=== PATIENT | male | born 1990 | race Two or more races ===

== ENCOUNTER 2019-12-28 10:26 | Inpatient (IN) | payer MEDICARE, MEDICAID ==
[~2019-12-28] VITALS: Ht 160 cm; Wt 79.7 kg
[2019-12-28] MEDS ORDERED: ACETAMINOPHEN 650 mg PER 20 mL UD PO ONE (11:00)
[2019-12-28] MEDS ORDERED: methylPREDNISolone SOD SUCC 125 MG/2 ML VL IV ONE (12:15)
[2019-12-28] MEDS ORDERED: ZINC SULFATE 220mg CAP or TAB PO ONE (12:45)
[2019-12-28] MEDS ORDERED: ASCORBIC ACID 500 MG TAB PO ONE (12:45)
[2019-12-28] MEDS ORDERED: ENOXAPARIN SOD 100 MG/1 ML SYRINGE SC ONE (12:45)
[2019-12-28] MEDS ORDERED: hydrOXYchloroQUINE SULFATE 200 MG TAB PO ONE (12:45)
[2019-12-28] MEDS ORDERED: AZITHROMYCIN 500MG/ 250ML 250 ML IV ONE (12:45)
[2019-12-28] MEDS ORDERED: SODIUM CHLORIDE 0.9% 1,000 ML IV ONE (13:00)
[2019-12-28 13:24] LABS: Basophils # (auto) 0 10 ^3/uL (0-0.2); Basophils % (auto) 0.1 % (0.0-2.0); Eosinophils # (auto) 0 10 ^3/uL (0-0.8); Hematocrit 47.5 % (41.0-53.0); Hemoglobin 16.1 g/dL (13.5-17.5); Lymphocytes # (auto) 0.7 10 ^3/uL (0.4-5.4); Lymphocytes % (auto) 5.6 % (10.0-50.0); Mean Corpuscular Hgb Conc. 33.9 g/dL (32.0-36.0); Mean Corpuscular Volume 85.4 fL (80.0-100.0); Monocytes # (auto) 0.8 10 ^3/uL (0-1.3); Monocytes % (auto) 6.3 % (0.0-12.0); Neutrophils # (auto) 11.1 10 ^3/uL (1.6-8.6); Nucleated Red Blood Cells % 0.1 %; Platelet Count (auto) 263 10^3/uL (140-450); Red Blood Cells 5.56 10^6/uL (4.5-5.90); Red Cell Distribution Width 13.5 % (11.8-14.3); White Blood Cell 12.6 10^3/uL (4.4-10.8)
[2019-12-28] MEDS ORDERED: SODIUM CHLORIDE 0.9% 1,000 ML IV SCH (13:34)
[2019-12-28] MEDS ORDERED: ONDANSETRON HCL 4 MG/2 ML VIAL IV PRN (13:45)
[2019-12-28] MEDS ORDERED: MORPHINE SULF INJ 2 MG/ML SYRINGE 1ML IV PRN (13:45)
[2019-12-28] MEDS ORDERED: LACTULOSE 20Gm/30ML SOLN PO PRN (13:45)
[2019-12-28] MEDS ORDERED: NITROGLYCERIN 0.4 MG SL TAB SL PRN (13:45)
[2019-12-28 13:48] LABS: Albumin 3.1 g/dL (3.4-5.0); BUN/Creatinine Ratio 14.3; Calcium 8.7 mg/dL (8.5-10.1); Potassium 3.8 mmol/L (3.5-5.1)
[2019-12-28 13:50] LABS: Total Protein 7.7 g/dL (6.4-8.2)
[2019-12-28] MEDS ORDERED: ALBUTEROL SULF HFA 90MCG INH 200DOSE IN SCH (14:00)
[2019-12-28 14:08] LABS: Lactate Dehydrogenase 394 U/L (87-241)
[2019-12-28 14:13] LABS: CRP High Sensitivity > 19.0 mg/dL (< 0.3)
[2019-12-28] MEDS: CLINDAMYCIN 600MG IV 50 ML IV SCH ×2 (15:23→22:17)
[2019-12-28] MEDS ORDERED: BUDESONIDE (INHALATION) 0.5 MG/2 ML NEB NEB ONE (17:15)
[2019-12-28] MEDS: ENOXAPARIN SOD 80 MG/0.8ML SYRINGE SC SCH ×2 (22:00→22:17)
[2019-12-28] MEDS: DexAMETHasone SOD PHOS 10MG/1ML VIAL INJ IV SCH (22:16)
[2019-12-28] MEDS: traMADol HCL 50 MG TAB PO PRN (22:17)
[2019-12-28] MEDS: BUDESONIDE (INHALATION) 0.5 MG/2 ML NEB NEB SCH (22:26)
[2019-12-29] MEDS: CLINDAMYCIN 600MG IV 50 ML IV SCH (05:54)
[2019-12-29 05:55] LABS: Basophils # (auto) 0 10 ^3/uL (0-0.2); Basophils % (auto) 0.5 % (0.0-2.0); Eosinophils # (auto) 0 10 ^3/uL (0-0.8); Hematocrit 44.7 % (41.0-53.0); Hemoglobin 15.5 g/dL (13.5-17.5); Lymphocytes # (auto) 0.4 10 ^3/uL (0.4-5.4); Lymphocytes % (auto) 4.8 % (10.0-50.0); Mean Corpuscular Hemoglobin 29.5 pg (28.0-32.0); Mean Corpuscular Hgb Conc. 34.6 g/dL (32.0-36.0); Mean Corpuscular Volume 85.3 fL (80.0-100.0); Monocytes # (auto) 0.4 10 ^3/uL (0-1.3); Monocytes % (auto) 4.7 % (0.0-12.0); Neutrophils # (auto) 7.1 10 ^3/uL (1.6-8.6); Platelet Count (auto) 303 10^3/uL (140-450); Red Blood Cells 5.24 10^6/uL (4.5-5.90); Red Cell Distribution Width 13.5 % (11.8-14.3); White Blood Cell 7.9 10^3/uL (4.4-10.8)
[2019-12-29 06:06] LABS: Albumin 2.7 g/dL (3.4-5.0); Calcium 8.7 mg/dL (8.5-10.1); Potassium 4.4 mmol/L (3.5-5.1)
[2019-12-29 06:10] LABS: Bilirubin, Total 0.7 mg/dL (0.2-1.0); Total Protein 7.2 g/dL (6.4-8.2)
[2019-12-29] MEDS: levoFLOXacin 500MG 100 ML IV SCH (09:45)
[2019-12-29] MEDS: ENOXAPARIN SOD 80 MG/0.8ML SYRINGE SC SCH (09:46)
[2019-12-29] MEDS: CHOLECALCIFEROL (VITD3) 1,000UNIT=25mCg TAB PO SCH (09:46)
[2019-12-29] MEDS: DexAMETHasone SOD PHOS 10MG/1ML VIAL INJ IV SCH (09:46)
[2019-12-29] MEDS: ZINC SULFATE 220mg CAP or TAB PO SCH (09:46)
[2019-12-29] MEDS: BUDESONIDE (INHALATION) 0.5 MG/2 ML NEB NEB SCH ×2 (10:47→22:04)
[2019-12-29] MEDS ORDERED: POTASSIUM EFFERVESENT TAB 25 MEQ PO ONE (15:30)
[2019-12-29] MEDS ORDERED: FUROSEMIDE 20 MG/2 ML VIAL IV ONE (15:30)
--- NOTE | 2019-12-29 20:15 | NUR ---
PATIENT ADMITTED TO ROOM 234 Patient arrived on the unit A&O, respirations even and non-labored with no s/s of distress. VS: T 97.9, BP 112/62, HR 100, RR 30. Patient O2Sat at 88%, placed on NC at 3L, patient increased to 93%. Patient accompanied by his sister, Sapna, who will be staying with the patient through the night. Sapna stated that her will be staying with the patient during the daytime. The patient is autistic along with mental retardation. His caregiver stated that his mental age is 1 years old. Urinal bedside, bed in lowest locked position with 2 side rails up. Call light within reach. Patient and family member advised to call for assistance. Will continue to monitor.
[2019-12-29 21:00] VITALS: BP 112/62
[2019-12-29 22:00] VITALS: BP 112/62
--- NOTE | 2019-12-29 23:20 | NUR ---
Pain Patient c/o a sore throat. Caregiver stated that his throat has made it painful for him to swallow. Administered Ultram 50 mg per EMAR. Will continue to monitor.
[2019-12-29] MEDS: traMADol HCL 50 MG TAB PO PRN (23:22)
[2019-12-29] MEDS: DexAMETHasone 4 MG TAB PO SCH (23:22)
[2019-12-30 05:00] VITALS: BP 106/65
[2019-12-30] MEDS: BUDESONIDE (INHALATION) 0.5 MG/2 ML NEB NEB SCH (07:03)
--- NOTE | 2019-12-30 07:30 | NUR ---
Opening Shift Note Assumed care of patient, awake and alert. No S/S of distress/SOB or pain noted at this time. Instructed on POC and to call for assist PRN, pt response is delayed and family at bedside, included in POC and teaching, pt educated on the use of incentive spirometer and need to turn frequently including prone positioning, family verbalized understanding, will continue to monitor for changes Q1hr and PRN.
[2019-12-30 08:00] VITALS: BP 133/73
[2019-12-30 09:00] VITALS: BP 108/58
[2019-12-30] MEDS: levoFLOXacin 500MG 100 ML IV SCH (09:40)
[2019-12-30] MEDS: POTASSIUM EFFERVESENT TAB 25 MEQ PO SCH (09:41)
[2019-12-30] MEDS: ENOXAPARIN SOD 40 MG/0.4 ML SYRINGE SC SCH (09:41)
[2019-12-30] MEDS: CHOLECALCIFEROL (VITD3) 1,000UNIT=25mCg TAB PO SCH (09:42)
[2019-12-30] MEDS: ZINC SULFATE 220mg CAP or TAB PO SCH (09:42)
[2019-12-30] MEDS: DexAMETHasone 4 MG TAB PO SCH ×2 (09:43→21:22)
[2019-12-30] MEDS: FUROSEMIDE 20 MG/2 ML VIAL IV SCH (09:43)
--- NOTE | 2019-12-30 09:55 | NUR ---
PULMONOLOGY DR HANNA AT BEDSIDE, DISCUSSING POC WITH PT AND FAMILY, NEW ORDERS ENTERED BY DM, CONT CARE
--- NOTE | 2019-12-30 10:15 | NUR ---
INCENTIVE SPIROMETER PT ABLE TO RETURN DEMONSTRATION ON HOW TO USE IS AND RAISED MARKER TO 500, FAMILY INFORMED TO ENCOURAGE PT TO USE Q1HR WA, PT UNABLE TO VERBALIZED FULL UNDERSTANDING BUT FAMILY IS, CONT CARE
[2019-12-30 13:00] VITALS: BP 100/61
[2019-12-30] MEDS: ALBUTEROL SULF 2.5 MG/0.5ML(0.5%) NEB SOLN NEB SCH ×2 (14:00→22:16)
[2019-12-30] MEDS ORDERED: ALBUTEROL SULF HFA 90MCG INH 200DOSE IN SCH (14:00)
[2019-12-30] MEDS: hydrOXYchloroQUINE SULFATE 200 MG TAB PO SCH ×2 (16:30→21:22)
[2019-12-30 17:00] VITALS: BP 105/66
--- NOTE | 2019-12-30 17:15 | NUR ---
O2 87%, PT RE-APPLIED O2 INCREASED TO 92%, PT RE-ORIENTED AND INSTRUCTED TO KEEP O2 ON, FAMILY AT BEDSIDE, INSTRUCTED TO CALL STAFF IMMEDIATELY IF PT REMOVED OXYGEN, CONT CARE
--- NOTE | 2019-12-30 19:30 | NUR ---
Opening Shift Note Assumed care of patient, awake and alert x2. No S/S of distress/SOB or pain. Instructed on POC and to call for assist PRN. Bed in lowest locked position, call light within reach, side rails up x2. Will continue to monitor for changes Q1hr and PRN.
[2019-12-30] MEDS: methylPREDNISolone SOD SUCC 40 MG/ML VL IV SCH (20:41)
[2019-12-30] MEDS: diphenhdrAMINE HCL 50 MG/1 ML VL IV SCH (20:41)
[2019-12-30] MEDS: ACETAMINOPHEN 650 mg PER 20 mL UD PO SCH (20:42)
[2019-12-30] MEDS: TOCILIZUMAB 400 MG in SODIUM CHL 0.9% 80 ML IV SCH (21:22)
[2019-12-30 22:00] VITALS: BP 105/71
[2019-12-30] MEDS ORDERED: hydrOXYchloroQUINE SULFATE 200 MG TAB PO SCH (22:00)
[2019-12-31] MEDS: BUDESONIDE (INHALATION) 0.5 MG/2 ML NEB NEB SCH ×3 (01:41→23:32)
[2019-12-31 05:00] VITALS: BP 114/71
[2019-12-31 06:40] LABS: Basophils # (auto) 0 10 ^3/uL (0-0.2); Basophils % (auto) 0.2 % (0.0-2.0); Eosinophils # (auto) 0 10 ^3/uL (0-0.8); Hematocrit 45.2 % (41.0-53.0); Hemoglobin 15.7 g/dL (13.5-17.5); Lymphocytes # (auto) 0.4 10 ^3/uL (0.4-5.4); Lymphocytes % (auto) 4.7 % (10.0-50.0); Mean Corpuscular Hemoglobin 29.9 pg (28.0-32.0); Mean Corpuscular Hgb Conc. 34.8 g/dL (32.0-36.0); Mean Corpuscular Volume 85.9 fL (80.0-100.0); Monocytes # (auto) 0.6 10 ^3/uL (0-1.3); Monocytes % (auto) 6.6 % (0.0-12.0); Neutrophils # (auto) 7.5 10 ^3/uL (1.6-8.6); Neutrophils % (auto) 88.5 % (37.0-80.0); Nucleated Red Blood Cells % 0.1 %; Platelet Count (auto) 415 10^3/uL (140-450); Red Blood Cells 5.27 10^6/uL (4.5-5.90); Red Cell Distribution Width 13.6 % (11.8-14.3); White Blood Cell 8.5 10^3/uL (4.4-10.8)
[2019-12-31 06:56] LABS: Potassium 4.2 mmol/L (3.5-5.1)
[2019-12-31 07:01] LABS: BUN/Creatinine Ratio 24.7; Calcium 8.6 mg/dL (8.5-10.1)
--- NOTE | 2019-12-31 07:30 | NUR ---
Opening Shift Note Assumed care of patient, awake and alert. No S/S of distress/SOB or pain. Instructed on POC and to call for assist PRN, will continue to monitor for changes Q1hr and PRN. Fall precautions in place per safety protocol.
[2019-12-31 08:00] VITALS: BP 127/76
[2019-12-31] MEDS: diphenhdrAMINE HCL 50 MG/1 ML VL IV SCH (08:30)
[2019-12-31] MEDS: ACETAMINOPHEN 650 mg PER 20 mL UD PO SCH (08:30)
[2019-12-31] MEDS: methylPREDNISolone SOD SUCC 40 MG/ML VL IV SCH (08:30)
[2019-12-31] MEDS: TOCILIZUMAB 400 MG in SODIUM CHL 0.9% 80 ML IV SCH (09:00)
[2019-12-31] MEDS ORDERED: AZITHROMYCIN 500MG/ 250ML 250 ML IV SCH (10:00)
[2019-12-31] MEDS: ENOXAPARIN SOD 40 MG/0.4 ML SYRINGE SC SCH ×2 (10:00→10:35)
[2019-12-31] MEDS: ZINC SULFATE 220mg CAP or TAB PO SCH (10:29)
[2019-12-31] MEDS: FUROSEMIDE 20 MG/2 ML VIAL IV SCH (10:29)
[2019-12-31] MEDS: DexAMETHasone 4 MG TAB PO SCH ×2 (10:30→21:30)
[2019-12-31] MEDS: POTASSIUM EFFERVESENT TAB 25 MEQ PO SCH (10:30)
[2019-12-31] MEDS: levoFLOXacin 500 MG TAB PO SCH (10:35)
[2019-12-31] MEDS ORDERED: ACETAMINOPHEN 650 mg PER 20 mL UD PO ONE (11:00)
[2019-12-31] MEDS ORDERED: diphenhdrAMINE HCL 50 MG/1 ML VL IV ONE (11:00)
[2019-12-31] MEDS ORDERED: methylPREDNISolone SOD SUCC 40 MG/ML VL IV ONE (11:00)
[2019-12-31] MEDS: ALBUTEROL SULF 2.5 MG/0.5ML(0.5%) NEB SOLN NEB SCH ×3 (11:13→23:32)
[2019-12-31] MEDS ORDERED: TOCILIZUMAB 400 MG in SODIUM CHL 0.9% 80 ML IV ONE (11:30)
[2019-12-31] MEDS: CHOLECALCIFEROL (VITD3) 1,000UNIT=25mCg TAB PO SCH (11:55)
[2019-12-31] MEDS: hydrOXYchloroQUINE SULFATE 200 MG TAB PO SCH ×2 (11:55→21:30)
[2019-12-31 12:00] VITALS: BP 111/70
--- NOTE | 2019-12-31 14:15 | NUR ---
Nutrition Assessment Notes Please refer to link for full assessment notes. Est Energy needs: 9381-2664 kcals (17-20 kcal/kgBW) Est Protein needs: 65-82 gms/day (0.8-1.0 gm/kgBW) Will continue to monitor and reassess prn. Addendum: 12/31/19 at [address] Amended: Links added.
[2019-12-31 16:56] VITALS: BP 121/67
[2019-12-31] MEDS: Ensure HIGH Protein Chocolate 8oz Bottle PO SCH (18:00)
[2019-12-31 22:00] VITALS: BP 120/68
[2020-01-01 05:00] VITALS: BP 112/65
[2020-01-01 05:12] LABS: Hematocrit 47.1 % (41.0-53.0); Hemoglobin 16.2 g/dL (13.5-17.5); Mean Corpuscular Hemoglobin 29.4 pg (28.0-32.0); Mean Corpuscular Hgb Conc. 34.3 g/dL (32.0-36.0); Mean Corpuscular Volume 85.5 fL (80.0-100.0); Platelet Count (auto) 440 10^3/uL (140-450); Red Blood Cells 5.51 10^6/uL (4.5-5.90); Red Cell Distribution Width 13.4 % (11.8-14.3)
[2020-01-01 05:24] LABS: Basophils % (manual) 0 (0.0-2.0); Blast Cells 0; Eosinophils % (manual) 0 (0-7); Metamyelocytes % 0; Myelocytes % 0; Promyelocytes % 0; Reactive Lymphocytes 0
[2020-01-01 05:46] LABS: Albumin 2.7 g/dL (3.4-5.0); Calcium 8.4 mg/dL (8.5-10.1); Potassium 4.4 mmol/L (3.5-5.1)
[2020-01-01 05:50] LABS: Bilirubin, Total 0.8 mg/dL (0.2-1.0); Total Protein 6.9 g/dL (6.4-8.2)
[2020-01-01 06:44] LABS: Band Neutrophils % (manual) 1; Lymphocytes % (manual) 7 (10.0-50.0); Monocytes % (manual) 8 (0-12)
[2020-01-01] MEDS: ALBUTEROL SULF 2.5 MG/0.5ML(0.5%) NEB SOLN NEB SCH ×3 (06:52→21:25)
[2020-01-01 08:00] VITALS: BP 109/66
[2020-01-01] MEDS: Ensure HIGH Protein Chocolate 8oz Bottle PO SCH ×2 (09:06→17:51)
[2020-01-01] MEDS: FUROSEMIDE 20 MG/2 ML VIAL IV SCH (09:15)
[2020-01-01] MEDS: POTASSIUM EFFERVESENT TAB 25 MEQ PO SCH (09:16)
[2020-01-01] MEDS: levoFLOXacin 500 MG TAB PO SCH (09:46)
[2020-01-01] MEDS: ENOXAPARIN SOD 40 MG/0.4 ML SYRINGE SC SCH ×2 (09:46→22:03)
[2020-01-01] MEDS: ZINC SULFATE 220mg CAP or TAB PO SCH (09:46)
[2020-01-01] MEDS: DexAMETHasone 4 MG TAB PO SCH ×2 (09:46→22:02)
[2020-01-01] MEDS: CHOLECALCIFEROL (VITD3) 1,000UNIT=25mCg TAB PO SCH (09:46)
[2020-01-01] MEDS: hydrOXYchloroQUINE SULFATE 200 MG TAB PO SCH ×2 (09:46→22:03)
[2020-01-01] MEDS: BUDESONIDE (INHALATION) 0.5 MG/2 ML NEB NEB SCH ×2 (10:03→21:25)
[2020-01-01 12:00] VITALS: BP 97/70
[2020-01-01] MEDS ORDERED: SODIUM CHLORIDE 0.9 % NEB SOLN 3ML NEB ONE (15:17)
[2020-01-01 16:54] VITALS: BP 101/54
--- NOTE | 2020-01-01 20:00 | NUR ---
Opening Shift Note Assumed care of patient. Awake, alert and oriented x3. Sister is at bedside. No S/S of distress/SOB or pain. Patient is sleeping in bed, nasal cannula is on at 5L, with even and unlabored respirations. Instructed on POC and to call for assist PRN. Bed locked, in lowest position, call light within reach, side rails up x2. Will continue to monitor for changes Q1hr and PRN.
[2020-01-01 22:00] VITALS: BP 117/69
[2020-01-02 02:24] VITALS: BP 117/69
[2020-01-02 05:00] VITALS: BP 110/63
[2020-01-02] MEDS: BUDESONIDE (INHALATION) 0.5 MG/2 ML NEB NEB SCH ×2 (06:16→22:00)
[2020-01-02] MEDS: ALBUTEROL SULF 2.5 MG/0.5ML(0.5%) NEB SOLN NEB SCH ×3 (06:16→22:00)
[2020-01-02 08:07] VITALS: BP 101/68
[2020-01-02] MEDS: Ensure HIGH Protein Chocolate 8oz Bottle PO SCH ×2 (10:26→18:16)
[2020-01-02] MEDS: FUROSEMIDE 20 MG/2 ML VIAL IV SCH (10:27)
[2020-01-02] MEDS: POTASSIUM EFFERVESENT TAB 25 MEQ PO SCH (10:28)
[2020-01-02] MEDS: ZINC SULFATE 220mg CAP or TAB PO SCH (10:28)
[2020-01-02] MEDS: DexAMETHasone 4 MG TAB PO SCH ×2 (10:28→22:00)
[2020-01-02] MEDS: ENOXAPARIN SOD 40 MG/0.4 ML SYRINGE SC SCH ×2 (10:28→22:00)
[2020-01-02] MEDS: levoFLOXacin 500 MG TAB PO SCH (10:28)
[2020-01-02] MEDS: CHOLECALCIFEROL (VITD3) 1,000UNIT=25mCg TAB PO SCH (10:29)
[2020-01-02] MEDS: hydrOXYchloroQUINE SULFATE 200 MG TAB PO SCH ×2 (10:29→22:00)
[2020-01-02 13:00] VITALS: BP 94/68
--- NOTE | 2020-01-02 13:51 | NUR ---
assessment Patient is a 29 year old cognitively delayed male who is Covid 19 positive. Per patients sister Sapna prior to admission patient lived home with his parents and family and needed assistance. The whole family is positive for Covid. Patients PCP is Dr Blas in [place]. Patient is autistic. I informed Sapna I would continue to monitor patients progress and will discharge plan closer to discharge. Sapna verbalized understanding. Addendum: 01/02/20 at 1355 by Priscilla CHÁVEZ Amended: Links added.
[2020-01-02 16:57] VITALS: BP 102/61
--- NOTE | 2020-01-02 20:00 | NUR ---
Opening Shift Note Assumed care of patient, awake and alert. No S/S of distress/SOB or pain. Instructed patient and family member on POC and to call for assist PRN, will continue to monitor for changes Q1hr and PRN.bed in low position call light within reach. family member at bedside.
[2020-01-02 22:00] VITALS: BP 98/65
--- NOTE | 2020-01-02 22:00 | NUR ---
patient and family member educated on is family member verbalized understanding
[2020-01-03 05:00] VITALS: BP 106/58
--- NOTE | 2020-01-03 06:54 | NUR ---
patient rounds patient resting in bed. family member at bedside. patient denies sob distress or pain. call light within reach. and bed in low position
[2020-01-03] MEDS: BUDESONIDE (INHALATION) 0.5 MG/2 ML NEB NEB SCH (07:08)
[2020-01-03] MEDS: ALBUTEROL SULF 2.5 MG/0.5ML(0.5%) NEB SOLN NEB SCH ×2 (07:08→15:32)
--- NOTE | 2020-01-03 07:14 | NUR ---
report given to dayshift rn patient is alert and awake denies sob distress or pain
[2020-01-03 09:07] VITALS: BP 105/64
[2020-01-03] MEDS: FUROSEMIDE 20 MG/2 ML VIAL IV SCH (10:00)
[2020-01-03] MEDS: POTASSIUM EFFERVESENT TAB 25 MEQ PO SCH (10:00)
[2020-01-03] MEDS: Ensure HIGH Protein Chocolate 8oz Bottle PO SCH ×2 (10:20→18:43)
[2020-01-03] MEDS: ZINC SULFATE 220mg CAP or TAB PO SCH (10:22)
[2020-01-03] MEDS: DexAMETHasone 4 MG TAB PO SCH (10:22)
[2020-01-03] MEDS: levoFLOXacin 500 MG TAB PO SCH (10:23)
[2020-01-03] MEDS: CHOLECALCIFEROL (VITD3) 1,000UNIT=25mCg TAB PO SCH (10:23)
[2020-01-03] MEDS: ENOXAPARIN SOD 40 MG/0.4 ML SYRINGE SC SCH (10:23)
[2020-01-03] MEDS: hydrOXYchloroQUINE SULFATE 200 MG TAB PO SCH (10:23)
[2020-01-03 13:00] VITALS: BP 99/65
--- NOTE | 2020-01-03 14:53 | NUR ---
paged SS Re: patients home 02. awaiting call back
--- NOTE | 2020-01-03 15:07 | NUR ---
Per Dr Roblero ABG is not needed for Covid patients.
--- NOTE | 2020-01-03 15:08 | NUR ---
Paged runner worker supervisor home energy consultant
--- NOTE | 2020-01-03 15:19 | NUR ---
Per juan pillowcase maker on-call, [facility] faces[facility]
--- NOTE | 2020-01-03 15:29 | NUR ---
paperwork faxed to [facility] [phone]- phone #- [phone]
--- NOTE | 2020-01-03 16:31 | NUR ---
Paged mobile application developer - [facility] phone number does not work. Number does not go through.
[2020-01-03 17:00] VITALS: BP 100/44
--- NOTE | 2020-01-03 18:44 | NUR ---
patient discharged home with 02. patient family member at bedside for instructions.
== END 2020-01-03 18:05 | disposition home or self-care (01) | DRG 871 ==
LOC: ER 10:26 → TELE 10:27 → TELE-EAST 12-29 20:28
PROVIDERS: ADMIT Internal Medicine; ATTEND Internal Medicine Nephrology
DX: A41.89 Other specified sepsis (principal); U07.1 COVID-19; J12.89 Other viral pneumonia; J96.01 Acute respiratory failure with hypoxia; R65.20 Severe sepsis without septic shock; E66.9 Obesity, unspecified; R62.50 Unspecified lack of expected normal physiological development in childhood; E88.09 Other disorders of plasma-protein metabolism, not elsewhere classified; Z79.899 Other long term (current) drug therapy; Z82.49 Family history of ischemic heart disease and other diseases of the circulatory system; Z83.3 Family history of diabetes mellitus; Z68.32 Body mass index [BMI] 32.0-32.9, adult
CPT/HCPCS: 36415; 71045; 80048; 80053; 82728; 83605; 83615; 83735; 85007; 85025; 85027; 85379; 86141; 87040; 94640; 96365; 96372; 96375; G0378; J1100; J1956; J2405; J3490

== ENCOUNTER 2021-08-12 17:47 | Emergency (ER) | payer MEDICARE, MEDICAID ==
[~2021-08-12] VITALS: Ht 170.2 cm; Wt 81.2 kg
[2021-08-12 17:52] VITALS: BP 125/85
[2021-08-12] MEDS ORDERED: SODIUM CHLORIDE 0.9% 1,000 ML IVB ONE (19:00)
== END 2021-08-12 22:23 | disposition left against medical advice (07) ==
LOC: ER 17:47
DX: S93.401A Sprain of unspecified ligament of right ankle, initial encounter (principal); X50.1XXA Overexertion from prolonged static or awkward postures, initial encounter; Y93.89 Activity, other specified; Y92.89 Other specified places as the place of occurrence of the external cause; Y99.8 Other external cause status
CPT/HCPCS: 73610

== ENCOUNTER 2024-04-19 20:01 | Emergency (ER) | payer MEDICARE, MEDICAID ==
[~2024-04-19] VITALS: Ht 170.2 cm; Wt 83.4 kg
--- NOTE | 2024-04-19 20:16 | ED.PDOC ---
Mark. trauma (HPI) HPI Comments 34 y.o autistic male brought in by father, presents to the ED for a chief complaint of right knee zohu and abrasions s/p mechanical fall today. Father reports patient was running around with a rope outside, heard him fall and turned around to find patient on the floor. Patient presents with small abrasions to the zhou. No LOC, head injuries, dizziness or lightheadedness reported. No blood loss. Time Seen by MD: 20:10 Primary Care Provider: JAY JAY TOBIN Reviewed notes: Nurses Notes, Medications, Allergies Allergies: Coded Allergies: NO KNOWN ALLERGIES (Unverified , 12/28/19) Home Meds No Active Prescriptions or Reported Meds Information Source: Patient, Relative (Father) Mode of Arrival: Ambulatory Severity: Moderate Timing: Hours Duration: Since onset Location: (R) Leg Mechanism: Blunt trauma, Fall Associated signs and symtoms: Other Past Medical History PAST MEDICAL HISTORY: Denies Past Medical History (Other): austim Surgical History: Denies all surgeries Family History Family History: Family hx of DM, Family hx of HTN Social History Smoker: Non-Smoker Alcohol: Denies ETOH Use Drugs: Denies Drug Use Lives In: Home Constitutional: denies: chills, diaphoresis, fatigue, fever, malaise, sweats, weakness, others EENTM: denies: blurred vision, double vision, ear bleeding, ear discharge, ear drainage, ear pain, ear ringing, eye pain, eye redness, hearing loss, mouth pain, mouth swelling, nasal discharge, nose bleeding, nose congestion, nose pain, photophobia, tearing, throat pain, throat swelling, voice changes, others Respiratory: denies: cough, hemoptysis, orthopnea, SOB at rest, shortness of breath, SOB with excertion, stridor, wheezing, others Cardiovascular: denies: chest pain, dizzy spells, diaphoresis, Dyspnea on exertion, edema, irregular heart beat, left arm pain, lightheadedness, palpitations, PND, syncope, others Gastrointestinal: denies: abdomen distended, abdominal pain, blood streaked bowels, constipated, diarrhea, dysphagia, difficulty swallowing, hematemesis, melena, nausea, poor appetite, poor fluid intake, rectal bleeding, rectal pain, vomiting, others Genitourinary: denies: burning, dysuria, flank pain, frequency, hematuria, incontinence, penile discharge, penile sore, pain, testicle pain, testicle swelling, urgency, others Neurological: denies: dizziness, fainting, headache, left sided numbness, left sided weakness, numbness, paresthesia, pre-existing deficit, right sided numbness, right sided weakness, seizure, speech problems, tingling, tremors, weakness, others Musculoskeletal: reports: others (right zhou pain ); denies: back pain, gout, joint pain, joint swelling, muscle pain, muscle stiffness, neck pain Integumetry: reports: others (upper zhou abrasions ); denies: bruises, change in color, change in hair/nails, dryness, laceration, lesions, lumps, rash, wounds Allergic/Immunocompromised: denies: Difficulty Healing, Frequent Infections, Hives, Itching, others Hematologic/Lymphatic: denies: anemia, blood clots, easy bleeding, easy bruising, swollen glands, others Endocrine: denies: excessive hunger, excessive sweating, excessive thirst, excessive urination, flushing, intolerance to cold, intolerance to heat, unexplained weight gain, unexplained weight loss, others Psychiatric: denies: anxiety, bipolar disorder, depression, hopeless, panic disorder, schizophrenia, sleepless, suicidal, others All Other Systems: Reviewed and Negative Physical Exam General Appearance: Mild Distress (due to zhou pain), Normal HEENT: Normal ENT Inspection, Pharynx Normal, TMs Normal Neck: Full Range of Motion, Non-Tender, Normal, Normal Inspection Respiratory: Chest Non-Tender, Lungs Clear, No Accessory Muscle Use, No Respiratory Distress, Normal Breath Sounds Cardiovascular: No Edema, No JVD, No Murmur, No Gallop, Normal Peripheral Pulses, Regular Rate/Rhythm Breast Exam: Deferred Gastrointestinal: No Organomegaly, Non Tender, No Pulsatile Mass, Normal Bowel Sounds, Soft Genitalia: Deferred Pelvic: Deferred Rectal: Deferred Extremities: Other (Lemon sized hematoma noted to superior R zhou. Diffuse TTP. Pt. is able to bear weight.) Neurologic: Alert, capacity analyst II-XII nml as Tested, No Motor Deficits, Normal Affect, Normal Mood, No Sensory Deficits Cerebellar Function: Normal Reflexes: Normal Skin: Dry, Normal Color, Warm Lymphatic: No Adenopathy Was a procedure done? Was a procedure done?: No Differential Diagnosis Multiple Trauma: Fractures, Abrasions, Contusion X-Ray, Labs, Meds, VS Vital Signs Date Time Temp Pulse Resp B/P (MAP) Pulse Ox O2 Delivery O2 Flow Rate FiO2 04/19/24 20:32 98.1 86 17 135/71 (92) 98 Current Medications Medications (Trade) Dose Ordered Sig/Raheel Route Start Time Stop Time Status Last Admin Ibuprofen (Motrin Tablet) 800 mg ONCE ONCE PO 04/19/24 20:15 04/19/24 20:16 DC 04/19/24 20:33 CLINICAL INDICATION: superior zhou trauma TECHNIQUE: XY R TIB FIB XRAY Comparison: None FINDINGS/IMPRESSION: There is no evidence of acute fracture or dislocation. The visualized joint space is well maintained. The alignment is anatomical. There is no radiopaque foreign body. Soft tissue edema/ hematoma along the anterior and superior right leg X-Ray, Labs, Meds, VS Comment Pt. states good response to treatment. All studies performed at the ED today were reviewed by me personally. Imaging studies were unremarkable for any acute fractures. Pt. sustained a leg contusion. Pain meds as needed. Time of 1ST Reevaluation: 22:11 Reevaluation 1ST: Improved Consultation: PCP Patient Education/Counseling: Diagnosis, Treatment, Other Family Education/Counseling: Diagnosis, Treatment, Prognosis Departure 1 Departure Time of Disposition: 22:12 Impression: Primary Impression: Contusion of skin Disposition: HOME / SELF CARE / HOMELESS Condition: Stable Additional Instructions: Advise pain meds as needed as well as ice therapy. e-Prescriptions Ibuprofen Micronized (Ibuprofen) 800 Mg Tab 800 MG PO Q8HP PRN, #20 TAB Prov: SILVIA SERRANO PAC 04/19/24 Discharged With: Self, Relative (Father) Critical Care Note Critical Care Time?: No Stability Stability form required: No I personally scribed for SILVIA SERRANO PAC ([email or web address]) on 04/19/24 at 20:16. Electronically submitted by Angy Monahan ([facility]). I personally scribed for SILVIA SERRANO PAC ([email or web address]) on 04/19/24 at 21:52. Electronically submitted by Angy Monahan ([facility]). SILVIA SERRANO PAC Apr 19, 2024 20:16
[2024-04-19 20:32] VITALS: BP 135/71; PULSE 86; RESP 17; O2SAT 98
[2024-04-19] MEDS: IBUPROFEN 800 MG TAB PO ONE (20:33)
--- NOTE | 2024-04-19 21:28 | DVH ---
CLINICAL INDICATION: superior zhou trauma TECHNIQUE: XY R TIB FIB XRAY Comparison: None FINDINGS/IMPRESSION: There is no evidence of acute fracture or dislocation. The visualized joint space is well maintained. The alignment is anatomical. There is no radiopaque foreign body. Soft tissue edema/ hematoma along the anterior and superior righ t leg
[2024-04-19] MEDS ORDERED: IBUP-1455 PO (22:13)
== END 2024-04-19 22:39 | disposition home or self-care (01) ==
LOC: ER 20:01
DX: S80.01XA Contusion of right knee, initial encounter (principal); W18.09XA Striking against other object with subsequent fall, initial encounter; Y93.02 Activity, running; Y92.89 Other specified places as the place of occurrence of the external cause; Y99.8 Other external cause status
CPT/HCPCS: 73590